=== PATIENT | female | born 1945 | race Caucasian/White ===

== ENCOUNTER 2016-11-27 13:52 | Emergency (ER) | payer MEDICARE, OTHER ==
[2015-03-01 05:50] VITALS: BP 140/64
[~2016-11-27] VITALS: Ht 167.6 cm; Wt 88.5 kg
[~2016-11-27 13:52] MED LIST: CELE100C PO; NAPR220T70 PO; blood pressure med; cholesterol med; synthroid
[2016-11-27 14:26] LABS: BASO % 1 % (0-3); EOS # 0.1 x10^3/uL (0.0-0.7); EOS % 1 % (0-3); HEMATOCRIT 40.4 % (36.0-47.0); HEMOGLOBIN 13.7 g/dL (12.0-15.5); LYMPH # 0.5 x10^3/uL (1.0-4.8); LYMPH % 6 % (24-48); MEAN CORPUSCULAR HEMOGLOBIN 31 pg (25-35); MEAN CORPUSCULAR HGB CONC 34 g/dL (31-37); MEAN CORPUSCULAR VOLUME 91 fL (79-100); MONO # 0.7 x10^3/uL (0.0-1.1); MONO % 8 % (0-9); NEUT # 7.5 x10^3uL (1.8-7.7); NEUT % 85 % (31-73); PLATELET COUNT 266 x10^3/uL (140-400); RED BLOOD COUNT 4.44 x10^6/uL (3.50-5.40); RED CELL DISTRIBUTION WIDTH 13.7 % (11.5-14.5); WHITE BLOOD COUNT 8.9 x10^3/uL (4.0-11.0)
[2016-11-27 14:49] LABS: ALBUMIN 4.1 g/dL (3.4-5.0); CALCIUM 9.6 mg/dL (8.5-10.1); DIRECT BILIRUBIN 0.2 mg/dL (0.0-0.2); GFR 54.8; TOTAL BILIRUBIN 0.7 mg/dL (0.2-1.0); TOTAL PROTEIN 7.6 g/dL (6.4-8.2)
--- NOTE | 2016-11-27 15:00 | RAD ---
Indication: Laceration and pain after falling and hitting back of head. Technique: Noncontrast CT head was obtained. CT cervical spine includes axial images and coronal and sagittal reformatted images. Comparison for both exams is from January 12, 2008. One or more of the following individualized dose reduction techniques were utilized for this examination: 1. Automated exposure control 2. Adjustment of the mA and/or kV according to patient size 3. Use of iterative reconstruction technique Findings: Head: There is prominence of the ventricles and sulci. There is mild probable small vessel ischemic disease. There is no acute intracranial hemorrhage or extra-axial fluid collection. There is no mass effect or midline shift. Salas-white differentiation is preserved. There are vascular calcifications. There is no depressed skull fracture. Paranasal sinuses and mastoid air cells are clear. Cervical spine: There is no acute fracture. There is slight anterolisthesis at C4-C5 and retrolisthesis at C5-C6 which appears degenerative in nature. No traumatic malalignment is apparent. Prevertebral soft tissues are within normal limits. Craniovertebral junction is unremarkable. Presumed pannus about the dens is noted. Degenerative changes in the cervical spine include facet hypertrophy, disc osteophyte complexes, and uncinate process spurring. Carotid artery calcifications are noted. There is minimal apical scarring. Impression: 1. No acute intracranial findings. Brain parenchymal volume loss and mild probable small vessel ischemic disease. 2. Negative for an acute fracture or dislocation in the cervical spine. Degenerative changes in the cervical spine.
--- NOTE | 2016-11-27 15:01 | RAD ---
Indication: Syncopal episode today. Technique: Upright portable chest radiograph was obtained. Comparison is from May 26, 2011. Findings: The lungs are clear. Calcified granuloma is noted on the right. The heart is not enlarged. There is atheromatous disease in the thoracic aorta. There is no heart failure. There are degenerative changes in the shoulder. There are postsurgical changes is partially included in the lumbar spine. Leads overlie the patient. Impression: No acute thoracic findings.
--- NOTE | 2016-11-27 15:19 | PHYS DOC ---
Past History Past Medical History: Arthritis, High Cholesterol, Hypertension, Hypothyroid Past Surgical History: , Hip Replacement, Other Alcohol Use: None Drug Use: None Adult General Chief Complaint Chief Complaint: SYNCOPE HPI HPI 71-year-old female presenting to the emergency department today with syncope. This occurred approximately an hour prior to arrival. She was working out in the lawn when she passed out. She denies any prodromal symptoms. She denies palpitations chest pain fevers chills and prior to this was feeling well. She denies tongue biting or fecal or urinary incontinence. She did sustain head injury when she passed out and hit her head. She denies being on blood thinners. Review of systems is negative for chest pain shortness of breath palpitations abdominal pain nausea vomiting fevers or chills. All other review of systems is negative unless otherwise noted in history of present illness. ED course: 71-year-old female presenting to the emergency department today with syncope. Physical examination shows laceration to the posterior occiput otherwise is unremarkable.EKG shows sinus rhythm with regular rate. Normal intervals. Normal axis. ST segments are congruent. Not suggestive of ACS. Reviewed by myself.Chest x-ray reviewed by myself shows no obvious infiltrate or pneumothorax present. No obvious acute cardiopulmonary process present. Head neck CT obtained which was unremarkable for acute pathology. Blood work obtained which was unremarkable. Given the patient's age, I discussed the possibility of admitting the patient for possible telemetry. She does not have a history of CHF, did not have palpitations during the syncopal episode and I do not feel that the patient suffered from an arrhythmia. That being said, the patient's age does play a factor in whether we should keep her for telemetry. After having a long discussion with the patient and offering the patient admission, she declined and was subsequent discharged home to follow-up with her primary care doctor. Patient was able to ambulate in the emergency department without any difficulty and was subsequently discharged home to follow -up with her doctor in the next few days. I encouraged her to drink oral liquids to prevent dehydration and to stay out of the heat. The patient was then discharged home in stable condition to follow up with their primary care physician over the next 2-3 days. They were to return if their symptoms worsened or if they were concerned for any reason. [id number] discharge instructions and return precautions were given. Patient's questions were answered to their satisfaction. Patient is comfortable plan. Review of Systems Review of Systems SEE ABOVE Allergies Allergies Allergies Coded Allergies Type Severity Reaction Last Updated Verified No Known Drug Allergies 03/01/15 No Physical Exam Physical Exam Constitutional: Well developed, well nourished, no acute distress, non-toxic appearance. [] HENT: Normocephalic and a half centimeter laceration to the posterior occiput. Nontender cervical spine midline., bilateral external ears normal, oropharynx moist, no oral exudates, nose normal. [] Eyes: PERRLA, EOMI, conjunctiva normal, no discharge. [] Neck: Normal range of motion, no tenderness, supple, no stridor. [] Cardiovascular:Heart rate regular rhythm, no murmur [] Lungs & Thorax: Bilateral breath sounds clear to auscultation [] Abdomen: Bowel sounds normal, soft, no tenderness, no masses, no pulsatile masses. [] Skin: Warm, dry, no erythema, no rash. [] Back: No tenderness, no CVA tenderness. [] Extremities: No tenderness, no cyanosis, no clubbing, ROM intact, no edema. [] Neurologic: Alert and oriented X 3, normal motor function, normal sensory function, no focal deficits noted. [] Psychologic: Affect normal, judgement normal, mood normal. [] Current Patient Data Lab Results Laboratory Tests Test 11/27/16 14:14 White Blood Count 8.9 x10^3/uL (4.0-11.0) Red Blood Count 4.44 x10^6/uL (3.50-5.40) Hemoglobin 13.7 g/dL (12.0-15.5) Hematocrit 40.4 % (36.0-47.0) Mean Corpuscular Volume 91 fL (79-100) Mean Corpuscular Hemoglobin 31 pg (25-35) Mean Corpuscular Hemoglobin Concent 34 g/dL (31-37) Red Cell Distribution Width 13.7 % (11.5-14.5) Platelet Count 266 x10^3/uL (140-400) Neutrophils (%) (Auto) 85 % (31-73) H Lymphocytes (%) (Auto) 6 % (24-48) L Monocytes (%) (Auto) 8 % (0-9) Eosinophils (%) (Auto) 1 % (0-3) Basophils (%) (Auto) 1 % (0-3) Neutrophils # (Auto) 7.5 x10^3uL (1.8-7.7) Lymphocytes # (Auto) 0.5 x10^3/uL (1.0-4.8) L Monocytes # (Auto) 0.7 x10^3/uL (0.0-1.1) Eosinophils # (Auto) 0.1 x10^3/uL (0.0-0.7) Basophils # (Auto) 0.0 x10^3/uL (0.0-0.2) Sodium Level 140 mmol/L (136-145) Potassium Level 4.0 mmol/L (3.5-5.1) Chloride Level 101 mmol/L (98-107) Carbon Dioxide Level 28 mmol/L (21-32) Anion Gap 11 (6-14) Blood Urea Nitrogen 21 mg/dL (7-20) H Creatinine 1.0 mg/dL (0.6-1.0) Estimated GFR (Cockcroft-Gault) 54.8 Glucose Level 112 mg/dL (70-99) H Lactic Acid Level 1.4 mmol/L (0.4-2.0) Calcium Level 9.6 mg/dL (8.5-10.1) Total Bilirubin 0.7 mg/dL (0.2-1.0) Direct Bilirubin 0.2 mg/dL (0.0-0.2) Aspartate Amino Transferase (AST) 45 U/L (15-37) H Alanine Aminotransferase (ALT) 46 U/L (14-59) Alkaline Phosphatase 126 U/L (46-116) H Troponin I Quantitative < 0.017 ng/mL (0-0.055) WT-Rsb-W-Type Natriuretic Peptide 96 pg/mL (0-124) Total Protein 7.6 g/dL (6.4-8.2) Albumin 4.1 g/dL (3.4-5.0) Lipase 236 U/L (73-393) EKG EKG [] Radiology/Procedures Radiology/Procedures [] Course & Med Decision Making Course & Med Decision Making Pertinent Labs and Imaging studies reviewed. (See chart for details) [] Dragon Disclaimer Dragon Disclaimer This chart was dictated in whole or in part using Voice Recognition software in a busy, high-work load, and often noisy Emergency Department environment. It may contain unintended and wholly unrecognized errors or omissions. Departure Departure: Impression: Primary Impression: Syncope Disposition: 01 HOME, SELF-CARE Condition: STABLE Referrals: GERRI LONDONO MD (PCP) Patient Instructions: Syncope, [id number] Additional Instructions: Thank you for allowing us to participate in your care today. Followup with your primary care physician in 3 days if your symptoms do not improve. Call your Primary Doctor tomorrow and inform them of your visit today. If you do not have a primary care provider you can ask for a list of our primary care providers. Return to the emergency department you have any new or concerning findings. This should be evaluated by the primary care physician and any necessary consulting services for continued management within a few days after discharge. Return to emergency room if you have any new or concerning symptoms including but not limited to fever, chills, nausea, vomiting, intractable pain, any new rashes, chest pain, shortness of air, uncontrolled bleeding, difficulty breathing, and/or vision loss. HANK RAMOS MD Nov 27, 2016 15:19
--- NOTE | 2016-11-27 15:26 | EKG ---
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
[2016-11-27 15:46] LABS: BILIRUBIN,URINE NEG (NEG); CLARITY,URINE HAZY; COLOR,URINE YELLOW; GLUCOSE,URINE NEG (NEG); UROBILINOGEN,URINE 0.2 mg/dL (0.2 mg/dL)
[2016-11-27 15:47] LABS: NITRITE,URINE NEG (NEG)
[2016-11-27 15:48] LABS: BACTERIA,URINE 0 /HPF (0-FEW); RBC,URINE 0 /HPF (0-2); SQUAMOUS EPITHELIAL CELL,UR OCC /LPF; WBC,URINE OCC /HPF (0-4)
[2016-11-27 15:52] LABS: HYALINE CASTS, URINE FEW /HPF
== END 2016-11-27 16:29 | disposition home or self-care (01) ==
LOC: ER 13:52
DX: R55 Syncope and collapse (principal); S09.90XA Unspecified injury of head, initial encounter; E03.9 Hypothyroidism, unspecified; I10 Essential (primary) hypertension; E78.00 Pure hypercholesterolemia, unspecified; M19.90 Unspecified osteoarthritis, unspecified site; W22.8XXA Striking against or struck by other objects, initial encounter; Y93.89 Activity, other specified; Y99.8 Other external cause status; Y92.89 Other specified places as the place of occurrence of the external cause
CPT/HCPCS: 36415; 70450; 71010; 72125; 80048; 80076; 81001; 83605; 83690; 83880; 84484; 85025; 87086; 93005; 99285-25

== ENCOUNTER 2016-12-07 09:46 | Emergency (ER) | payer MEDICARE, OTHER ==
[~2016-12-07] VITALS: Ht 167.6 cm; Wt 88.5 kg
--- NOTE | 2016-12-07 10:52 | PHYS DOC ---
Past History Past Medical History: Arthritis, High Cholesterol, Hypertension, Hypothyroid Past Surgical History: , Hip Replacement, Other Alcohol Use: None Drug Use: None Adult General Chief Complaint Chief Complaint: SUTURE/STAPLE REMOVAL HPI HPI Patient is a 71 year old F who presents with staple removal in her posterior scalp. She has had no issues or complications Review of Systems Review of Systems Constitutional: Denies fever or chills [] Eyes: Denies change in visual acuity, redness, or eye pain [] HENT: Denies nasal congestion or sore throat [] Respiratory: Denies cough or shortness of breath [] Cardiovascular: No additional information not addressed in HPI [] GI: Denies abdominal pain, nausea, vomiting, bloody stools or diarrhea [] : Denies dysuria or hematuria [] Musculoskeletal: Denies back pain or joint pain [] Integument: Denies rash or skin lesions [] Neurologic: Denies headache, focal weakness or sensory changes [] Endocrine: Denies polyuria or polydipsia [] Family History Family History Noncontributory Current Medications Current Medications Locations reviewed Allergies Allergies Allergies Coded Allergies Type Severity Reaction Last Updated Verified No Known Drug Allergies 03/01/15 No Physical Exam Physical Exam Constitutional: Well developed, well nourished, no acute distress, non-toxic appearance. [] HENT: Normocephalic, atraumatic, bilateral external ears normal, oropharynx moist, no oral exudates, Eyes: EOMI, conjunctiva normal, no discharge. [] Neck: Normal range of motion, no tenderness, supple, no stridor. [] Cardiovascular:Heart rate regular rhythm, no murmur [] Lungs & Thorax: Bilateral breath sounds clear to auscultation [] Skin: Warm, dry, no erythema, no rash. [] Gabriela on the posterior scalp over a well-healing wound without signs of infection Extremities: No tenderness, no cyanosis, no clubbing, ROM intact, no edema. [] Neurologic: Alert and oriented X 3, normal motor function, normal sensory function, no focal deficits noted. [] Psychologic: Affect normal, judgement normal, mood normal. [] Current Patient Data Vital Signs Review nursing documentation EKG EKG [] Radiology/Procedures Radiology/Procedures [] Course & Med Decision Making Course & Med Decision Making Pertinent Labs and Imaging studies reviewed. (See chart for details) [] Dragon Disclaimer Dragon Disclaimer This chart was dictated in whole or in part using Voice Recognition software in a busy, high-work load, and often noisy Emergency Department environment. It may contain unintended and wholly unrecognized errors or omissions. Departure Departure: Impression: Primary Impression: Removal of staple Disposition: HOME, SELF-CARE Condition: STABLE Referrals: GERRI LONDONO MD (PCP) Patient Instructions: Staple Care and Removal Additional Instructions: Irma was seen in the emergency room for staple removal. No emergency medical condition was found on history or physical exam. Her gabriela were removed. She was advised to follow-up with her primary care doctor as needed for further management HALEY MONTEZ MD Dec 07, 2016 10:52
[2016-12-07 10:57] VITALS: BP 151/88
== END 2016-12-07 11:12 | disposition home or self-care (01) ==
LOC: ER 09:46
DX: S01.01XD Laceration without foreign body of scalp, subsequent encounter (principal); E03.9 Hypothyroidism, unspecified; I10 Essential (primary) hypertension; E78.00 Pure hypercholesterolemia, unspecified; M19.90 Unspecified osteoarthritis, unspecified site; X58.XXXD Exposure to other specified factors, subsequent encounter; Y92.89 Other specified places as the place of occurrence of the external cause; Y99.8 Other external cause status
CPT/HCPCS: 99281

== ENCOUNTER → 2016-12-20 | Outpatient (CLI) | payer MEDICARE, OTHER ==
[2016-12-07 10:57] VITALS: BP 151/88
--- NOTE | 2016-12-20 11:43 | RAD ---
Indication syncopal episodes. Signs and symptoms suggesting possible CVA. Grayscale color Doppler and spectral imaging was performed. Examination was targeted to the carotid bifurcations. On the right there is some atherosclerotic plaquing at the bifurcation. The color Doppler images do not suggest significant turbulence. The common carotid waveform and velocities are normal. The external carotid has a normal appearance. The internal carotid waveform and velocities are normal. The vertebral is patent and demonstrates normal antegrade flow. On the left there is also some plaquing at the bifurcation similar to the contralateral side. The color Doppler images do not suggest significant turbulence. The external carotid appears unremarkable. The internal carotid waveform and velocities are normal. The vertebral is patent and demonstrates normal directional flow. IMPRESSION: No evidence of hemodynamically significant stenosis at either carotid bifurcation. Stenosis 0-50%. Note: Stenosis calculations for CT, MR and conventional angiography are based upon determination of the distal ICA diameter in accordance with the NASCET methodology. Stenosis calculations for doppler studies are derived from validated velocity criteria which are known to correlate with NASCET methodology of determining stenosis.
== END | disposition home or self-care (01) ==
LOC: US 09:44
PROVIDERS: ATTEND Physician Assistant
DX: R55 Syncope and collapse (principal)
CPT/HCPCS: 93880

== ENCOUNTER → 2016-12-21 | Outpatient (CLI) | payer MEDICARE, OTHER ==
[2016-12-07 10:57] VITALS: BP 151/88
--- NOTE | 2016-12-21 13:37 | CARD ---
APPROVED REPORT EXAM: Two-dimensional and M-mode echocardiogram with Doppler and color Doppler. Other Information Quality : GoodHR: 76bpm Rhythm : NSR INDICATION Syncopal episodes RISK FACTORS Hypertension Hyperlipidemia Family History 2D DIMENSIONS RVDd3.0 (2.9-3.5cm)Left Atrium(2D)2.9 (1.6-4.0cm) IVSd0.9 (0.7-1.1cm)Aortic Root(2D)2.9 (2.0-3.7cm) LVDd4.4 (3.9-5.9cm)LVOT Diameter2.2 (1.8-2.4cm) PWd1.0 (0.7-1.1cm)LVDs2.9 (2.5-4.0cm) FS (%) 33.5 %SV54.5 ml LVEF(%)62.5 (>50%) Aortic Valve AoV Peak Suman.210.4cm/sAoV VTI44.2cm AO Peak GR.17.7mmHgLVOT Peak Suman.108.4cm/s LVOT VTI 23.05cmAO Mean GR.9mmHg IKE (VMAX)1.56gz8JSG (VTI)2.40cm2 AI P 1/2 [id number] Mitral Valve MV E Eaxyngxa98.7cm/sMV E Peak Gr.3mmHg MV DECEL [id number] A Wcrmsnym72.8cm/s MV E Mean Gr.2mmHgE/A Ratio0.9 MV A [id number] Pulmonary Valve PV Peak Xlvgxasn982.1cm/sPV Peak Grad.5mmHg Tricuspid Valve TR P. Gietpyop350on/sTR Peak Gr.30mmHg Pulmonary Vein S1 Rxfxqhhb21.6cm/sD2 Jfdmmfhb54.6cm/s LEFT VENTRICLE The left ventricle is normal size. There is normal left ventricular wall thickness. The left ventricu lar systolic function is normal. The Ejection Fraction is 60-65%. There is normal LV segmental wall m otion. Transmitral Doppler flow pattern is Grade I-abnormal relaxation pattern. RIGHT VENTRICLE The right ventricle is normal size. There is normal right ventricular wall thickness. The right ventr icular systolic function is normal. ATRIA The left atrium is mildly dilated. The right atrium size is normal. The interatrial septum is intact with no evidence for an atrial septal defect or patent foramen ovale as noted on 2-D or Doppler imagi ng. AORTIC VALVE The aortic valve is moderately sclerotic. The aortic valve is trileaflet. Doppler and Color Flow reve aled mild to moderate aortic regurgitation. There is no significant aortic valvular stenosis. MITRAL VALVE Mitral annular calcification is mild. The mitral valve leaflets are thickened. There is no evidence o f mitral valve prolapse. There is no mitral valve stenosis. Doppler and Color Flow revealed trace barbara ral regurgitation. TRICUSPID VALVE Doppler and Color Flow revealed mild tricuspid regurgitation. The pulmonary artery systolic pressure is estimated at 33 mmHg. There is mild pulmonary hypertension. PULMONIC VALVE The pulmonic valve is not well visualized but appears to open adequately. Doppler and Color Flow reve aled no pulmonic valvular regurgitation. There is no pulmonic valvular stenosis by spectral Doppler. GREAT VESSELS The aortic root is normal in size. The ascending aorta is normal in size. The pulmonary artery is nor mal. The IVC is normal in size and collapses >50% with inspiration. PERICARDIAL EFFUSION There is no evidence of significant pericardial effusion. Critical Notification Critical Value: No <Conclusion> The left ventricular systolic function is normal. The Ejection Fraction is 60-65%. There is normal LV segmental wall motion. Transmitral Doppler flow pattern is Grade I-abnormal relaxation pattern. Mild to moderate aortic regurgitation. Trace mitral regurgitation. Mild tricuspid regurgitation. The pulmonary artery systolic pressure is estimated at 33 mmHg. There is no evidence of significant pericardial effusion.
== END | disposition home or self-care (01) ==
LOC: ECHO 11:59
PROVIDERS: ATTEND Physician Assistant
DX: R55 Syncope and collapse (principal); I10 Essential (primary) hypertension; E78.5 Hyperlipidemia, unspecified
CPT/HCPCS: 93306

== ENCOUNTER → 2017-05-19 | Outpatient (CLI) | payer MEDICARE, OTHER ==
--- NOTE | 2017-05-19 11:11 | RAD ---
3 views each knee 05/19/2017 indication: Bilateral knee pain Comparison: Knee radiographs January 20, 2017 Discussion: Left knee: No fracture or dislocation is seen. Very mild medial compartment joint space narrowing is noted. Tricompartmental osteophytosis is present. No significant joint effusion or acute soft tissue abnormality is seen. Right knee: No fracture or dislocation is seen. Minimal medial compartment joint space narrowing is seen. Minimal tricompartmental osteophytosis is noted.. No acute soft tissue changes are seen. Impression: Similar mild degenerative changes bilateral knees without evidence of acute osseous abnormality.
== END | disposition home or self-care (01) ==
LOC: PMG 10:36
PROVIDERS: ATTEND Family Medicine
DX: M17.0 Bilateral primary osteoarthritis of knee (principal)
CPT/HCPCS: 73562

== ENCOUNTER → 2017-08-30 | Outpatient (CLI) | payer MEDICARE, OTHER ==
[2017-08-30 11:41] LABS: GFR 54.7
== END | disposition home or self-care (01) ==
LOC: LAB 10:36
PROVIDERS: ATTEND Psychiatry & Neurology Neurology
DX: G60.8 Other hereditary and idiopathic neuropathies (principal); E78.00 Pure hypercholesterolemia, unspecified; E78.5 Hyperlipidemia, unspecified
CPT/HCPCS: 36415; 82550; 82565; 84450; 84460; 84520

== ENCOUNTER → 2018-10-27 | Outpatient (CLI) | payer MEDICARE, OTHER ==
--- NOTE | 2018-10-27 11:34 | RAD ---
DATE: 10/27/2018. EXAM: Bilateral screening mammogram. HISTORY: Routine screening mammogram. COMPARISON: Previous mammogram from 2016. This study was interpreted with the benefit of Computerized Aided Detection (CAD). FINDINGS: Breast Density: HETERO The breast parenchyma Is heterogeneously dense, which could reduce sensitivity of mammography. Breast parenchyma level C. The skin and nipple are within normal limits. No suspicious calcifications, spiculated mass or area of architectural distortion. Stable 2 round masses in the left breast and given interval stability since 2016 and are considered benign. IMPRESSION: Incomplete exam due to inability to move neck. Bilateral MLO Mark views were not obtained. Given these limitations no apparent mammographic evidence of malignancy. Stable mammogram. BI-RADS CATEGORY: 2 BENIGN FINDING(S) RECOMMENDED FOLLOW-UP: 12M 12 MONTH FOLLOW-UP PQRS compliance statement: Patient information was entered into a reminder system with a target due date for the next mammogram. Mammography is a sensitive method for finding small breast cancers, but it does not detect them all and is not a substitute for careful clinical examination. A negative mammogram does not negate a clinically suspicious finding and should not result in delay in biopsying a clinically suspicious abnormality. "Our facility is accredited by the [employer] Mammography Program."
== END | disposition home or self-care (01) ==
LOC: MAMMO 08:44
PROVIDERS: ATTEND Family Medicine
DX: Z12.31 Encounter for screening mammogram for malignant neoplasm of breast (principal); N63.20 Unspecified lump in the left breast, unspecified quadrant
CPT/HCPCS: 77067

== ENCOUNTER → 2019-05-11 | Outpatient (CLI) | payer MEDICARE, OTHER ==
--- NOTE | 2019-05-11 16:47 | RAD ---
EXAM: KNEE BILAT 3V. HISTORY: Bilateral knee pain. COMPARISON: None. FINDINGS: On the left, there are moderate osteophytes along all 3 compartments. Joint spaces appear preserved. There is a small to moderate joint effusion. No fractures are identified. Alignment is maintained. On the right, there are moderate osteophytes along all 3 compartments. There is a moderate joint effusion. No fractures are identified. Alignment is maintained. IMPRESSION: 1. Mild tricompartmental osteoarthritis bilaterally. Moderate right and small left joint effusions. Electronically signed by: Andrea Carmona MD (05/11/2019 4:44 PM) [facility]
== END | disposition home or self-care (01) ==
LOC: DXRAD 13:31
PROVIDERS: ATTEND Family Medicine
DX: M25.762 Osteophyte, left knee (principal); M25.761 Osteophyte, right knee; M25.462 Effusion, left knee; M25.461 Effusion, right knee
CPT/HCPCS: 73562

== ENCOUNTER 2020-04-17 20:22 | Emergency (ER) | payer MEDICARE, OTHER ==
[~2020-04-17] VITALS: Ht 167.6 cm; Wt 91.2 kg
[2020-04-17] MEDS ORDERED: IV NORMAL SALINE 1,000ML 1,000 ML IV ONE (21:00)
[2020-04-17] MEDS ORDERED: GELATIN SPONGE SIZE 12-7MM SPONGE. TP ONE (21:00)
[2020-04-17] MEDS ORDERED: LIDOCAINE 2%/EPI 1:100,000 20 ML VIAL. IJ ONE (21:30)
[2020-04-17] MEDS ORDERED: [UNRECOGNIZED DRUG - REMARK] MC ONE (21:30)
--- NOTE | 2020-04-17 21:43 | PHYS DOC ---
Past History Past Medical History: Arthritis, High Cholesterol, Hypertension, Hypothyroid (ELISSA SILVA APRN) Past Surgical History: , Hip Replacement, Other (ELISSA SILVA APRN) Alcohol Use: None Drug Use: None (ELISSA SILVA APRN) Adult General Chief Complaint Chief Complaint: POST-OP PROBLEM HPI HPI Patient is a 75-year-old female patient presented to the ED today to be evaluated after falling. Patient had a tummy tuck with fat removal today done at [facility] today. She apparently was sleeping got up to go to the bathroom and fainted. She states she was dizzy before she fell. Denies any chest pain or shortness of breath. She has bleeding from her back the ED the fat sucking. (ELISSA SILVA APRN) Review of Systems Review of Systems Constitutional: Reports falling. Denies fever or chills [] Eyes: Denies change in visual acuity, redness, or eye pain [] HENT: Denies nasal congestion or sore throat [] Respiratory: Denies cough or shortness of breath [] Cardiovascular: No additional information not addressed in HPI [] GI: Denies abdominal pain, nausea, vomiting, bloody stools or diarrhea [] : Denies dysuria or hematuria [] Musculoskeletal: Denies back pain or joint pain [] Integument: Reports bleeding from laceration site where fat sucking equpment was inserted Neurologic: Reports dizziness and syncope. Denies headache, focal weakness or sensory changes [] All other systems were reviewed and found to be within normal limits, except as documented in this note. (ELISSA SILVA APRN) Current Medications Current Medications Current Medications Medications (Trade) Dose Ordered Sig/Jyoti Start Time Stop Time Status Last Admin Dose Admin Gelatin (Gelfoam Size 12-7mm) 2 each 1X ONCE 04/17/20 21:00 04/17/20 21:01 DC 04/17/20 21:15 2 EACH Info (No Anticoagulant Reversal Treatment) 1 ea 1X ONCE 04/17/20 21:30 04/17/20 21:31 DC Lidocaine/ Epinephrine (Xylocaine 2%-Epi 1:100,000) 20 ml 1X ONCE 04/17/20 21:30 04/17/20 21:31 DC Sodium Chloride 1,000 ml @ 1,000 mls/hr 1X ONCE 04/17/20 21:00 1/7/21 21:59 (ELISSA SILVA APRN) Allergies Allergies Allergies Coded Allergies Type Severity Reaction Last Updated Verified No Known Drug Allergies 03/01/15 No (ELISSA SILVA APRN) Physical Exam Physical Exam Constitutional: Well developed, well nourished, no acute distress, non-toxic appearance. [] HENT: Normocephalic, atraumatic, bilateral external ears normal, oropharynx moist, no oral exudates, nose normal. [] Eyes: PERRLA, EOMI, conjunctiva normal, no discharge. [] Neck: Normal range of motion, no tenderness, supple, no stridor. [] Cardiovascular:Heart rate regular rhythm, no murmur [] Lungs & Thorax: Bilateral breath sounds clear to auscultation [] Abdomen: Bowel sounds normal, soft, no tenderness, no masses, no pulsatile masses. [] Skin: Lower abdomen with a well approximated incision site, with a drain on the left side. Bilateral buttocks with 1 cm laceration each. Right upper abdomen with a laceration approximately 1 cm long. All of these three lacerations of bleeding profusely. Back: No tenderness, no CVA tenderness. [] Extremities: No tenderness, no cyanosis, no clubbing, ROM intact, no edema. [] Neurologic: Alert and oriented X 3, normal motor function, normal sensory function, no focal deficits noted. Cranial nerves II through XII intact Psychologic: Affect normal, judgement normal, mood normal. [] (ELISSA SILVA APRN) EKG EKG [] (ELISSA SILVA APRN) Radiology/Procedures Radiology/Procedures Laceration/Wound Repair Laceration/Wound Repair : [] Wound Location: Bilateral buttocks and right abdomen Wound's Depth, Shape: Horizontal Wound Length (cm): Approximately 1 cm each Wound Explored: clean Irrigated w/ Saline (ccs): 10 cc on each Betadine Prep?: Yes Anesthesia: Lidocaine with epinephrine Volume Anesthetic (ccs): 1 cc on each Wound Repaired With: Ethilon Suture Size/Type: 3.0/interrupted sutures Number of Sutures: Left buttock, 2 interrupted sutures, right buttock 1 interrupted suture, right lower abdomen 1 interrupted sutures. (ELISSA SILVA APRN) Radiology/[place] [address] IMAGING REPORT Signed PATIENT: JELLY TAYLOR AACCOUNT: [id number] : 1945 LOCATION: ER AGE: 75 SEX: F EXAM STATUS: REG ER ORD. PHYSICIAN: ELISSA SILVA APRN REASON: syncope PROCEDURE: PORTABLE CHEST 1V XR CHEST 1V Clinical History: Reason: syncope / Spl. Instructions: / History: Technique: AP view of the chest was obtained at 04/17/2020 8:51 PM. Comparison: November 27, 2016. Findings: The cardiomediastinal silhouette is normal. The pulmonary vasculature is normal. There is linear opacities in lung bases. Impression: Basal infiltrates likely discoid atelectasis. Electronically signed by: Aleja Goldman III, MD (04/17/2020 11:21 PM) [facility] DICTATED AND SIGNED BY: ALEJA GOLDMAN III, MD DATE: 04/17/202319 CC: LATOYA ATKINSON MD; ELISSA SILVA APRN; AMIRA ZARCO ~MTH0 0 (LATOYA ATKINSON MD) Heart Score Risk Factors: Risk Factors: DM, Current or recent (<one month) smoker, HTN, HLP, family history of CAD, obesity. Risk Scores: Risk Factors: DM, Current or recent (<one month) smoker, HTN, HLP, family history of CAD, obesity. (ELISSA SILVA APRN) Course & Med Decision Making Course & Med Decision Making Pertinent Labs and Imaging studies reviewed. (See chart for details) This is a 75-year-old female patient presented to the ED today after having had a syncope episode. Patient had a tummy tack with fat removal done today also note below. She arrives in the ED with laceration sites on bilateral buttocks and right abdomen bleeding, we attempted to use pressure with no success, we attempted Gelfoam with no success to stop the bleeding. Stitches were used which successfully stopped the bleeding. [address] Atkinson (ELISSA SILVA APRN) Course & Med Decision Making Still awaiting labs at 2300. Follow up labs Mild Anemia 10,9, normal normal platelets. Mild elevation CK. CT showed no acute pathology. Entire length of surgery line exposed and redressed. Cleaned with normal saline and Betadine. Replaced dressing. Since suction line was not functioning because the ports were outside the skin it was removed. Milked out the excessive collection of blood/serum under the suture line. Then applied a urostomy patch to collect excessive fluid. Been redressed entire wound . Patient did not have any pelvic or abdomen binder and since we no longer do surgery at our hospital (we no longer stock of post surgery binders or dressings.) I usee 6 inch Cresencio wrap which was taped in place. Patient to remove dressing within 3 days. Patient to expect some collection of blood in th e urostomy. Patient to call the surgeon in the morning to see if they want to see her sooner. Return if any concerns. Instructed patient to not take any NSAIDs for the next couple days. Must see surgeon sooner if any signs of fever, infection or concerns. Impression: 1. Post Op serum and blood drainage. 2. Mild anemia 10.9 3. Elevated CK 990 (LATOYA ATKINSON MD) Dragon Disclaimer Dragon Disclaimer This electronic medical record was generated, in whole or in part, using a voice recognition dictation system. (ELISSA SILVA APRN) Departure Departure: Impression: Primary Impression: Syncope Disposition: 01 DC HOME SELF CARE/HOMELESS Condition: STABLE Referrals: AMIRA ZARCO (PCP) Dragon Disclaimer This chart was dictated in whole or in part using Voice Recognition software in a busy, high-work load, and often noisy Emergency Department environment. It may contain unintended and wholly unrecognized errors or omissions. (LATOYA ATKINSON MD) Problem Qualifiers Primary Impression: Syncope Syncope type: unspecified Qualified Codes: R55 - Syncope and collapse ELISSA SILVA APRN Apr 17, 2020 21:43 LATOYA ATKINSON MD Apr 17, 2020 22:59
[2020-04-17 22:56] LABS: BASO % 0 % (0-3); EOS % 0 % (0-3); HEMATOCRIT 32.7 % (36.0-47.0); HEMOGLOBIN 10.9 g/dL (12.0-15.5); LYMPH # 0.5 x10^3/uL (1.0-4.8); LYMPH % 5 % (24-48); MEAN CORPUSCULAR HEMOGLOBIN 30 pg (25-35); MEAN CORPUSCULAR HGB CONC 33 g/dL (31-37); MEAN CORPUSCULAR VOLUME 91 fL (79-100); MONO # 0.7 x10^3/uL (0.0-1.1); MONO % 7 % (0-9); NEUT # 8.6 x10^3uL (1.8-7.7); NEUT % 88 % (31-73); PLATELET COUNT 242 x10^3/uL (140-400); RED CELL DISTRIBUTION WIDTH 13.7 % (11.5-14.5); WHITE BLOOD COUNT 9.8 x10^3/uL (4.0-11.0)
[2020-04-17 23:04] LABS: CALCIUM 8.7 mg/dL (8.5-10.1); CREATININE 0.8 mg/dL (0.6-1.0); GFR 70.1; POTASSIUM 3.8 mmol/L (3.5-5.1)
[2020-04-17 23:19] LABS: ALBUMIN 3.3 g/dL (3.4-5.0); MAGNESIUM 1.8 mg/dL (1.8-2.4); TOTAL BILIRUBIN 0.6 mg/dL (0.2-1.0); TOTAL PROTEIN 6.7 g/dL (6.4-8.2)
--- NOTE | 2020-04-17 23:24 | RAD ---
XR CHEST 1V Clinical History: Reason: syncope / Spl. Instructions: / History: Technique: AP view of the chest was obtained at 04/17/2020 8:51 PM. Comparison: November 27, 2016. Findings: The cardiomediastinal silhouette is normal. The pulmonary vasculature is normal. There is linear opac ities in lung bases. Impression: Basal infiltrates likely discoid atelectasis. Electronically signed by: Mookie Carney III, MD (04/17/2020 11:21 PM) [facility]UPENDRA
--- NOTE | 2020-04-17 23:42 | EKG ---
[address] [address] Test Date: 2020-04-17 Test Time: 22:21:25 Pat Name: JELLY TAYLOR Department: Room: Gender: F Decorator Mannequin: ALIZA : 1945 Requested By: ELISSA SILVA Order Number: [id number] Reading MD: Measurements Intervals [place] Rate: 80 P: 62 IA: 160 QRS: 11 QRSD: 86 T: 22 QT: 406 QTc: 472 Interpretive Statements SINUS RHYTHM NORMAL ECG RI6.02 No previous ECG available for comparison
[2020-04-18 00:29] LABS: BARBITURATES NEG (NEG); BENZODIAZEPINES NEG (NEG); CANNABINOIDS NEG (NEG); COCAINE NEG (NEG); METHADONE NEG (NEG); OPIATES POS (NEG); PHENCYCLIDINE NEG (NEG)
[2020-04-18 00:34] LABS: BACTERIA,URINE 0 /HPF (0-FEW); BILIRUBIN,URINE NEG (NEG); CLARITY,URINE CLEAR; COLOR,URINE YELLOW; GLUCOSE,URINE NEG (NEG); NITRITE,URINE NEG (NEG); RBC,URINE 0 /HPF (0-2); SQUAMOUS EPITHELIAL CELL,UR MANY /LPF; UROBILINOGEN,URINE 0.2 mg/dL (0.2 mg/dL)
[2020-04-18 00:38] LABS: AMPHETAMINE/METHAMPHETAMINE NEG (NEG)
[2020-04-19 02:15] VITALS: BP 118/64
== END 2020-04-18 02:30 | disposition home or self-care (01) ==
LOC: ER 20:22
DX: S31.821A Laceration without foreign body of left buttock, initial encounter (principal); S31.811A Laceration without foreign body of right buttock, initial encounter; R42 Dizziness and giddiness; R55 Syncope and collapse; M19.90 Unspecified osteoarthritis, unspecified site; E78.00 Pure hypercholesterolemia, unspecified; I10 Essential (primary) hypertension; E03.9 Hypothyroidism, unspecified; Z98.890 Other specified postprocedural states; W18.39XA Other fall on same level, initial encounter; Y93.89 Activity, other specified; Y92.89 Other specified places as the place of occurrence of the external cause; Y99.8 Other external cause status
CPT/HCPCS: 12001; 36415; 71045; 80053; 80307; 81001; 82553; 83735; 83880; 84443; 84484; 85025; 93005; 96360; 96361; 99285; J7030

== ENCOUNTER 2021-02-19 10:06 | Emergency (ER) | payer MEDICARE, OTHER ==
[~2021-02-19] VITALS: Ht 167.6 cm; Wt 92.1 kg
--- NOTE | 2021-02-19 10:41 | PHYS DOC ---
Past History Past Medical History: Arthritis, High Cholesterol, Hypertension, Hypothyroid, Other Additional Past Medical Histor: NEUROPATHY, thyroid disease, osteoporosis, Past Surgical History: , Hip Replacement, Other Additional Past Surgical Histo: BACK Alcohol Use: None Drug Use: None General Adult EDM: Chief Complaint: UPPER EXTREMITY PAIN HPI: HPI: 76-year-old female presents with right posterior shoulder pain. She started having trouble a week ago seemingly out of the blue. She does not remember any overuse or trauma of any kind. She denies history of shoulder trauma. The pain is a cramping sensation. She has limited motion due to pain. The center of the pain is along the top of the scapula and around anterior. She denies chest pain, shortness of breath, diaphoresis. Review of Systems: Review of Systems: Constitutional: Denies fever or chills Eyes: Denies change in visual acuity HENT: Denies nasal congestion or sore throat Respiratory: Denies cough or shortness of breath Cardiovascular: Denies chest pain or edema GI: Denies abdominal pain, nausea, vomiting, bloody stools or diarrhea : Denies dysuria Musculoskeletal: Right shoulder pain Integument: Denies rash Neurologic: Denies headache, focal weakness or sensory changes Endocrine: Denies polyuria or polydipsia Lymphatic: Denies swollen glands Psychiatric: Denies depression or anxiety Allergies: Allergies: Allergies Coded Allergies Type Severity Reaction Last Updated Verified No Known Drug Allergies 03/01/15 No Physical Exam: PE: Constitutional: Well developed, well nourished, no acute distress, non-toxic appearance. [] HENT: Normocephalic, atraumatic, bilateral external ears normal, oropharynx moist, no oral exudates, nose normal. [] Eyes: PERRLA, EOMI, conjunctiva normal, no discharge. [] Neck: Normal range of motion, no tenderness, supple, no stridor. [] Cardiovascular: Heart rate regular rhythm, no murmur [] Lungs & Thorax: Bilateral breath sounds clear to auscultation [] Abdomen: Bowel sounds normal, soft, no tenderness, no masses, no pulsatile masses. [] Skin: Warm, dry, no erythema, no rash. [] Back: No tenderness, no CVA tenderness. [] Extremities: Tenderness above the right scapular spine. Decreased range of motion due to pain. Pain above 90 of abduction passive and active. [] Neurologic: Alert and oriented X 3, normal motor function, normal sensory function, no focal deficits noted. [] Psychologic: Affect normal, judgement normal, mood normal. [] Current Patient Data: Vital Signs: Vital Signs Date Time Temp Pulse Resp B/P (MAP) Pulse Ox O2 Delivery O2 Flow Rate FiO2 02/19/21 10:24 97.7 102 20 151/83 (105) 96 Room Air EKG: EKG: [] Radiology/Procedures: Radiology/Procedures: [] Impressions: EXAM: 3 Views Right Shoulder DATE: 02/19/2021 10:35 AM INDICATION: Reason: right shoulder pain since tuesday, no injury / Spl. Instructions: / History: COMPARISON: No Prior FINDINGS: There is no evidence for acute fracture or dislocation. AC joint is congruent with mild degenerative change. Severe right shoulder joint degenerative change with inferior projecting osteophytes and joint space effacement. Humeral head is not high riding. IMPRESSION: 1. No acute fracture or dislocation. 2. Severe right shoulder joint osteoarthritis Electronically signed by: James Lee MD (02/19/2021 11:34 AM) [id number] DICTATED AND SIGNED BY: JAMES LEE MD DATE: 02/19/21 1133 CC: VIKAS KAUR DO; AMIRA ZARCO PA ~MTH0 0 Heart Score: C/O Chest Pain: N/A Risk Factors: Risk Factors: DM, Current or recent (<one month) smoker, HTN, HLP, family history of CAD, obesity. Risk Scores: Score 0 - 3: 2.5% MACE over next 6 weeks - Discharge Home Score 4 - 6: 20.3% MACE over next 6 weeks - Admit for Clinical Observation Score 7 - 10: 72.7% MACE over next 6 weeks - Early Invasive Strategies Course & Med Decision Making: Course & Med Decision Making Pertinent Labs and Imaging studies reviewed. (See chart for details) The patient's x-ray is significant for severe arthritis of the right shoulder. I advised that she make an appointment with orthopedics to discuss a plan. She may need injections, MRI and/or scope. She states verbal understanding. I will give her a short course of Robards 5/325 for discomfort and help her sleep. She is stable for discharge at this time. [] Dragon Disclaimer: Dragon Disclaimer: This electronic medical record was generated, in whole or in part, using a voice recognition dictation system. Departure Departure: Impression: Primary Impression: Osteoarthritis of right shoulder Qualified Codes: M19.011 - Primary osteoarthritis, right shoulder Disposition: HOME / SELF CARE / HOMELESS Condition: STABLE Referrals: AMIRA ZARCO (PCP) Patient Instructions: Shoulder Pain, Sill-hn-Emvu Scripts Hydrocodone/Acetaminophen (Hydrocodone-Acetamin 5-325 mg) 1 Each Tablet 1 EACH PO Q4-6HRS PRN for PAIN, #10 TAB Prov: VIKAS KAUR DO 02/19/21 VIKAS KAUR DO Feb 19, 2021 10:41
--- NOTE | 2021-02-19 11:36 | RAD ---
EXAM: 3 Views Right Shoulder DATE: 02/19/2021 10:35 AM INDICATION: Reason: right shoulder pain since tuesday, no injury / Spl. Instructions: / History: COMPARISON: No Prior FINDINGS: There is no evidence for acute fracture or dislocation. AC joint is congruent with mild degenerative change. Severe right shoulder joint degenerative change with inferior projecting osteophytes and join t space effacement. Humeral head is not high riding. IMPRESSION: 1. No acute fracture or dislocation. 2. Severe right shoulder joint osteoarthritis Electronically signed by: James Lee MD (02/19/2021 11:34 AM) [id number]
[2021-02-19] MEDS ORDERED: HYDR-2759 PO ×2 (11:51→12:00)
[2021-02-19 12:02] VITALS: BP 143/81
== END 2021-02-19 12:08 | disposition home or self-care (01) ==
LOC: ER 10:06
DX: M25.511 Pain in right shoulder (principal); M19.011 Primary osteoarthritis, right shoulder
CPT/HCPCS: 73030; 99283-25

== ENCOUNTER → 2021-03-10 | Outpatient (CLI) | payer MEDICARE, OTHER ==
[2021-02-19 12:02] VITALS: BP 143/81
[~2021-03-10] MED LIST changes: +HYDR-2759 PO
--- NOTE | 2021-03-10 15:14 | RAD ---
EXAMINATION: XR KNEE 3 VIEWS CLINICAL HISTORY: Bilateral knee pain TECHNIQUE: XR KNEE 3 VIEWS COMPARISON: 05/11/2019 FINDINGS/ IMPRESSION: Marked medial and lateral compartment narrowing with genu valgus bilaterally, greater on the right. B ilateral patellofemoral compartment narrowing. Bilateral tricompartmental small marginal osteophytes. No acute fracture. Small right joint effusion. No significant left joint effusion. Vascular calcific ations. Electronically signed by: Leighton Mahmood DO (03/10/2021 3:12 PM) [id number]
--- NOTE | 2021-03-10 16:48 | RAD ---
EXAMINATION: XR LUMBAR SPINE 4+V, XR THORACIC SPINE 3VIEWS CLINICAL HISTORY: Back pain TECHNIQUE: XR LUMBAR SPINE 4+V, XR THORACIC SPINE 3VIEWS COMPARISON: None FINDINGS/ IMPRESSION: T-SPINE: Normal anatomic alignment. No evidence of acute fracture. Mild multilevel degenerative disc disease. Posterior elements unremarkable. L-SPINE: Minimal levoconvex curvature. Postoperative changes related to L3-L5 posterior decompression with pos terior stabilization hardware. Fracture of both pedicle screws at L5. No evidence of acute fracture. Minimal L1-2 retrolisthesis, likely degenerative. Moderate to severe degenerative disc disease in the upper lumbar spine. Multilevel facet arthropathy. Degenerative changes right greater than left SI yuriy ints, incompletely evaluated. Partially visualized bilateral total hip arthroplasties. Vascular calci fications. Electronically signed by: Leighton Mahmood DO (03/10/2021 4:46 PM) [id number]
== END ==
LOC: RAD 10:04
PROVIDERS: ATTEND Physician Assistant Medical
DX: M25.761 Osteophyte, right knee (principal); M25.762 Osteophyte, left knee; M25.461 Effusion, right knee; M21.062 Valgus deformity, not elsewhere classified, left knee; M21.061 Valgus deformity, not elsewhere classified, right knee; M51.35 Other intervertebral disc degeneration, thoracolumbar region; M12.88 Other specific arthropathies, not elsewhere classified, other specified site; M47.817 Spondylosis without myelopathy or radiculopathy, lumbosacral region; Z96.643 Presence of artificial hip joint, bilateral; M84.48XA Pathological fracture, other site, initial encounter for fracture
CPT/HCPCS: 72072; 72110; 73562-50

== ENCOUNTER → 2021-03-24 | Outpatient (CLI) | payer MEDICARE, OTHER ==
--- NOTE | 2021-03-24 16:50 | RAD ---
DXA BONE DENSITY AXIAL History: Reason: SCREENING / Spl. Instructions: / History: Postmenopausal Comparison: None. TECHNIQUE: Dual energy x-ray absorptiometry of the left forearm was performed. T-score of average bon e mineral density based was calculated based on standard deviations above or below the expected young adult normal value. Diagnostic definitions were established by the World Health Organization. FINDINGS: The radius 33 percent for the left forearm is 0.479 g/cm^2, corresponding with a T-score of -3.3. Refer to the worksheets for full detail. IMPRESSION: 1. Osteoporosis. Average bone mineral density yields a T-score of -2.5 or less. Fracture risk is hig h. Electronically signed by: Ricky Hall DO (03/24/2021 4:47 PM) [id number]
--- NOTE | 2021-03-24 17:03 | RAD ---
BILATERAL DIGITAL SCREENING 2-D MAMMOGRAM INDICATION: Routine screening. COMPARISON: October 27, 2018, February 17, 2016 Interpretation was made using CAD. FINDINGS: Breast Density: There are scattered areas of fibroglandular density. RIGHT BREAST: No suspicious masses, calcifications or areas of architectural distortion are seen. LEFT BREAST: There are stable subcentimeter circumscribed masses in the outer breast. No suspicious m asses, calcifications or areas of architectural distortion are seen. IMPRESSION: 1. No imaging evidence of malignancy. ASSESSMENT: BI-RADS 2. Benign findings RECOMMENDATION: Routine annual screening mammogram. The facility will notify the patient of the results via mail. Patient information will be entered int o the mammography reminder system with a target recall date for the next mammogram. A reminder letter will be generated by the facility. Electronically signed by: Milla Stockton MD (03/24/2021 5:00 PM) [id number]
== END ==
LOC: MAMMO 09:45
PROVIDERS: ATTEND Physician Assistant Medical
DX: Z12.31 Encounter for screening mammogram for malignant neoplasm of breast (principal); M81.8 Other osteoporosis without current pathological fracture; Z78.0 Asymptomatic menopausal state
CPT/HCPCS: 77067; 77081